=== PATIENT | female | born 1985 | race Caucasian/White ===

== ENCOUNTER 2016-10-01 16:06 | Inpatient (IN) | payer MEDICAID, SELFPAY ==
--- NOTE | 2016-10-01 17:01 | C.PDOC ---
History Of Present Illness <Mena Broussard - Last Filed: 10/01/16 18:56> <Vasu Diego - Last Filed: 10/01/16 20:30> 31 y/o female with lmp in mid Jun, presents with light vaginal bleeding today. pt sts it started shortly before coming to ED while taking a shower,.hasn 't used more than one pad. pt denies passage of clots. pt sts [facility] and had a sonogram done yesterday. pt sts she was told nothing was seen on sonogram yesterday. pt has f/u appt with sheeter operator for tues. denies abdominal pain. (Mena Broussard) History Per: Patient History/Exam Limitations: no limitations Onset/Duration Of Symptoms: Hrs (3) Current Symptoms Are (Timing): Still Present Severity: Mild Last Menstral Period: mid jun : 1 Para: 0 Miscarriage: 0 <Mena Broussard - Last Filed: 10/01/16 18:56> <Vasu Diego - Last Filed: 10/01/16 20:30> Time Seen by Provider: 10/01/16 16:32 Chief Complaint (Nursing): Female Genitourinary Past Medical History Reviewed: Historical Data, Nursing Documentation, Vital Signs - Medical History PMH: No Chronic Diseases Surgical History: No Surg Hx Family History: States: Unknown Family Hx - Social History Hx Tobacco Use: No Hx Alcohol Use: No Hx Substance Use: No - Immunization History Hx Tetanus Toxoid Vaccination: No Hx Influenza Vaccination: No Hx Pneumococcal Vaccination: No <Mena Broussard - Last Filed: 10/01/16 18:56> Review Of Systems Constitutional: Negative for: Fever, Chills Cardiovascular: Negative for: Chest Pain Respiratory: Negative for: Cough, Shortness of Breath Gastrointestinal: Negative for: Nausea, Vomiting, Abdominal Pain Genitourinary: Positive for: Vaginal Bleeding. Negative for: Dysuria, Frequency , Vaginal Discharge Neurological: Negative for: Weakness, Numbness <Mena Broussard - Last Filed: 10/01/16 18:56> Physical Exam - Physical Exam Appears: Non-toxic, No Acute Distress, Other (anxious appearing) Skin: Warm, Dry Head: Atraumatic, Normacephalic Neck: Normal ROM Chest: Symmetrical, No Deformity Cardiovascular: Rhythm Regular, No Murmur Respiratory: Normal Breath Sounds, No Rales, No Rhonchi, No Wheezing Gastrointestinal/Abdominal: Normal Exam, Bowel Sounds, Soft, Tenderness (mild suprapubic tenderness), No Guarding, No Rebound Pelvic: Normal External Exam, No Cervix Open, No Adnexal Tenderness, Other ( cervix closed, scant pinkish discharge on finger. no cmt) <Mena Broussard - Last Filed: 10/01/16 18:56> ED Course And Treatment - Laboratory Results Result Diagrams: 10/01/16 17:18 10/01/16 17:18 O2 Sat by Pulse Oximetry: 99 <Mena Broussard - Last Filed: 10/01/16 18:56> - Laboratory Results Result Diagrams: 10/01/16 17:18 10/01/16 17:18 Pulse Ox Interpretation: Normal <Vasu Diego - Last Filed: 10/01/16 20:30> Medical Decision Making <Mena Broussard - Last Filed: 10/01/16 18:56> <Vasu Diego - Last Filed: 10/01/16 20:30> Medical Decision Makin31 y/o female with vag bleeding and ab pain on exam- labs, t and s, ua and pelvuc sonogram; eval for threatened ab, missed, complete, ectopic. ( Mena Broussard) Disposition - Disposition Disposition Time: 18:56 <Mena Broussard - Last Filed: 10/01/16 18:56> Discussed With : Elvie Camejo Comment: accepted the pt on her service and took over the care at 8:26 PM Doctor Will See Patient In The: ED Counseled Patient/Family Regarding: Studies Performed, Diagnosis - POA Present On Arrival: None <Vasu Diego - Last Filed: 10/01/16 20:30> - Disposition Disposition: HOSPITALIZED Condition: FAIR - Clinical Impression Clinical Impression: Hydatidiform mole Physician Patient Turnover Patient Signed Over To: Vasu Diego Handoff Comments: f/u bhcg and transvaginal us and dispo accordingly; no rhogam needed, O positive blood type. <Mena Broussard Last Filed: 10/01/16 18:56> Decision To Admit <Mena Broussard - Last Filed: 10/01/16 18:56> - Pt Status Changed To: Hospital Disposition Of: Inpatient - Admit Certification Admit to Inpatient:: After my assessment, the patient will require hospitalization for at least two midnights. This is because of the severity of symptoms shown, intensity of services needed, and/or the medical risk in this patient being treated as an outpatient. - InPatient: Physician Admission Certification: I certify that this patient requires 2 or more midnights of care for the following reason:: After my assessment, the patient will require hospitalization for at least two midnights. This is because of the severity of symptoms shown, intensity of services needed, and/or the medical risk in this patient being treated as an outpatient. - . Bed Request Type: PLASTER TENDER Admitting Physician: Elvie Camejo <Vasu Diego - Last Filed: 10/01/16 20:30> - . Patient Diagnosis: Hydatidiform mole
[2016-10-01 17:23] LABS: BASO % 0.6 % (0.0-2.0); EOS # 0.1 K/uL (0.0-0.7); EOS % 0.6 % (0.0-4.0); LYMPH # 2.3 K/uL (1.0-4.3); LYMPH % 28.5 % (20.0-40.0); MEAN CELL VOLUME 86.6 fL (81.0-99.0); MEAN CORPUSCULAR HEMOGLOBIN 29.1 pg (27.0-31.0); MEAN CORPUSCULAR HGB CONC 33.6 g/dL (33.0-37.0); MEAN PLATELET VOLUME 7.4 fL (7.2-11.7); MONO # 0.5 K/uL (0.0-0.8); MONO % 6.8 % (0.0-10.0); RED CELL DISTRIBUTION WIDTH 13.2 % (11.5-14.5); WHITE BLOOD COUNT 8.1 K/uL (4.8-10.8)
[2016-10-01 17:26] LABS: RBC URINE 1 /hpf (0-3); URINE BILIRUBIN NEGATIVE (NEGATIVE); URINE BLOOD 1+ (NEGATIVE); URINE COLOR Yellow (YELLOW); URINE GLUCOSE (UA) NORMAL (Normal); URINE KETONE NEGATIVE (NEGATIVE); URINE LEUKOCYTE ESTERASE NEG Leu/uL (Negative); URINE PROTEIN NEGATIVE (NEGATIVE); URINE UROBILINOGEN NORMAL mg/dL (0.2-1.0); WBC URINE 1 /hpf (0-5)
[2016-10-01 17:33] LABS: CHLORIDE 100 mmol/L (98-107)
[2016-10-01 17:34] LABS: POTASSIUM 4.2 mmol/L (3.6-5.2); SODIUM 135 mmol/L (132-148)
[2016-10-01 17:37] LABS: ALB/GLOB RATIO 1.5 (1.0-2.1); ALKALINE PHOSPHATASE 48 U/L (38-126); ALT/SGPT 19 U/L (9-52); AST/SGOT 23 U/L (14-36); BILIRUBIN,TOTAL 0.4 mg/dL (0.2-1.3); BLOOD UREA NITROGEN 10 mg/dL (7-17); CALCIUM 9.3 mg/dl (8.6-10.4); CARBON DIOXIDE 24 mmol/L (22-30); GFR AFRICAN-AMERICAN > 60; GLUCOSE,RANDOM 84 mg/dL (65-105); TOTAL PROTEIN 7.4 g/dL (6.3-8.3)
--- NOTE | 2016-10-01 20:15 | US ---
EXAM: US , Transvaginal CLINICAL HISTORY: 31 years old, female; Signs and symptoms; Lmp or gestational age (in weeks): Unknown beta 008403.00; Other: Bleeding; ; Additional info: Preg with bleeding, lmp mid feb TECHNIQUE: Real-time transvaginal obstetrical ultrasound of the maternal pelvis and a first trimester with image documentation. Transvaginal imaging was used for better evaluation of the fetus and adnexa. COMPARISON: No relevant prior studies available. FINDINGS: Uterus/cervix: The uterus measures 14.4 x 8.1 x 10.1 cm. Within the uterus there is a complex solid and cystic mass distending the endometrial cavity. There is no pole. There is no yolk sac. There is no gestational sac. Ovaries: The left ovary measures 2.9 x 1.7 x 3.4 cm. Subcentimeter follicles are present. Contiguous with the left ovary is a hypervascular complex lesion measuring 2.2 cm in greatest diameter. This could represent a corpus luteum cyst. Blood flow is seen within the left ovary. The right ovary measures 3 x 1.5 x 2.6 cm. Subcentimeter follicles are present. Blood flow is present within the right ovary. Free fluid: No free fluid. IMPRESSION: 1. Complete hydatidiform molar within the uterus EXAM: US First Trimester, Transabdominal CLINICAL HISTORY: 31 years old, female; Signs and symptoms; Lmp or gestational age (in weeks): Unknown beta 187431.00; Other: Bleeding; ; Additional info: Preg with bleeding, lmp mid feb TECHNIQUE: Real-time transabdominal obstetrical ultrasound of the maternal pelvis and a first trimester with image documentation. EXAM DATE/TIME: Exam ordered 10/01/2016 4:53 PM COMPARISON: No relevant prior studies available. FINDINGS: Gestation: Placenta/amniotic fluid: Cannot be adequately evaluated due to the early gestational age. Uterus/cervix: The uterus measures 14.4 x 8.1 x 10.1 cm. The cervix measures 4.6 cm in length. A nabothian cyst is noted within the cervix. Within the uterus there is a complex solid and cystic mass distending the endometrial cavity. There is no pole. There is no yolk sac. There is no gestational sac. Ovaries: The left ovary measures 2.9 x 1.7 x 3.4 cm. Subcentimeter follicles are present. Contiguous with the left ovary is a hypervascular complex lesion measuring 2.2 cm in greatest diameter. This could represent a corpus luteum cyst. Blood flow is seen within the left ovary. The right ovary measures 3 x 1.5 x 2.6 cm. Subcentimeter follicles are present. Blood flow is present within the right ovary. Free fluid: A small amount of free fluid is seen in the posterior cul-de-sac. IMPRESSION: 1. Complete hydatidiform molar within the uterus. 2. Corpus luteum cyst in the left ovary
[2016-10-01] MEDS ORDERED: Oxytocin 30 UNIT 30 UNITS/500 ML BAG IV SCH (21:30)
[2016-10-01] MEDS ORDERED: cefOXitin IV 2 gm in Dextrose 2 GM/50 ML BAG IVPB ONE (21:31)
[2016-10-01] MEDS: Lactated Ringer's 1,000 ML IV SCH (21:51)
[2016-10-01] MEDS ORDERED: cefOXitin IV 1 gm in Dextrose 2 GM/100 ML BAG IVPB ONE (21:55)
--- NOTE | 2016-10-01 22:06 | CP.PCM.HP ---
History of Present Illness - History of Present Illness History of Present Illness: Patient received in Bed 5. on a stretcher, in the E.D. 31 yo unsure LMP, possibly end of June, with confirmed by EPT, desired and anticipated first OB intake visit scheduled for Mon , who presented c/o vaginal bleeding, onset 1500 hours ... "Light flow and a brighter red than my normal period". Denies any abdominal pain/cramps. No nausea or vomiting. In E.D. quantitative HCG 205,850 IU and pelvic ultrasound with no gestational sac, pole nor yolk sac; and a "complex solid and cystic mass distending the endometrial cavity"; uterus measures 14.1 x 8.1 x 10.1 cm - consistent with a "complete hydatidiform molar ". Left ovary 2.9 x 1. x 3.4 cm with probable corpus luteal cyst 2.2 cm. Right ovary 3 x 1.5 x 2.6 cm. No free fluid. Patient ate breakfast at 1130 hours and a bowl of ceral at 1430 hours; drank water at approximately 1930 hours for ultrasound. P Ob: Primip P MANAGER MOLECULAR: 15 x 30 x 5. 2012, abnormal Pap and probable cone biopsy ([facility]). Denies any other STIs PMH: denies HTN, DM, asthma, thyroid, or cardiac disorders PSH: Cone biopsy NKDA Meds: none Soc Hx: Currently, 10 cig per day x 1 1/2 months (since ); previously, 1ppd since age 13. 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 Denies EtOH use. 03/2016; together x 1 1/2 years. Lives with in the Fam Hx: Mother alive 61 no med issues. Father alive 68 - cardiac disorders. No known fam h/o cancer Present on Admission - Present on Admission Any Indicators Present on Admission: No Review of Systems - Review of Systems All systems: reviewed and no additional remarkable complaints except - Reproductive: Female Reproductive:Female: As Per HPI Past Patient History - Infectious Disease Hx of Infectious Diseases: None - Past Social History Smoking Status: Heavy Smoker > 10 Cigarettes Daily Alcohol: None Drugs: Denies - CARDIAC Hx Cardiac Disorders: No - PULMONARY Hx Respiratory Disorders: No - NEUROLOGICAL Hx Neurological Disorder: No - HEENT Hx HEENT Problems: No - RENAL Hx Chronic Kidney Disease: No - ENDOCRINE/METABOLIC Hx Endocrine Disorders: No - HEMATOLOGICAL/ONCOLOGICAL Hx Blood Disorders: No - INTEGUMENTARY Hx Dermatological Problems: No - MUSCULOSKELETAL/RHEUMATOLOGICAL Hx Musculoskeletal Disorders: No - GASTROINTESTINAL Hx Gastrointestinal Disorders: No - GENITOURINARY/GYNECOLOGICAL Hx Genitourinary Disorders: Yes Other/Comment: abnormal Pap; S/P probable cone biopsy LMP:: unsure : 1 Para: 0 - PSYCHIATRIC Hx Psychophysiologic Disorder: No Hx Substance Use: No - SURGICAL HISTORY Hx Surgeries: Yes Other/Comment: Probable cone biopsy - ANESTHESIA Hx Anesthesia: Yes Hx Anesthesia Reactions: No Meds Allergies/Adverse Reactions: Allergies Allergy/AdvReac Type Severity Reaction Status Date / Time No Known Allergies Allergy Verified 10/01/16 16:17 Physical Exam - Constitutional Appears: Well, Non-toxic, No Acute Distress - Head Exam Head Exam: NORMAL INSPECTION - Eye Exam Eye Exam: Normal appearance - ENT Exam ENT Exam: Mucous Membranes Moist - Neck Exam Neck exam: Positive for: Full Rom - Respiratory Exam Respiratory Exam: Clear to Auscultation Bilateral, NORMAL BREATHING PATTERN - Cardiovascular Exam Cardiovascular Exam: REGULAR RHYTHM - GI/Abdominal Exam GI & Abdominal Exam: Normal Bowel Sounds, Soft - Exam Bimanual exam: Uterine Enlargement (16 weeks, soft, mobile, non tender. Minimal vaginal bleeding.) - Extremities Exam Extremities exam: Positive for: full ROM, normal inspection - Back Exam Back exam: NORMAL INSPECTION - Neurological Exam Neurological exam: Alert, Oriented x3 - Psychiatric Exam Psychiatric exam: Normal Affect, Normal Mood - Skin Skin Exam: Dry, Intact, Normal Color, Warm Results - Vital Signs Recent Vital Signs: Last Vital Signs Temp 98.2 F 10/01/16 16:15 Pulse 82 10/01/16 16:15 Resp 18 10/01/16 16:15 BP 107/74 10/01/16 16:15 Pulse Ox 99 10/01/16 19:00 - Labs Result Diagrams: 10/01/16 17:18 10/01/16 17:18 Labs: Laboratory Results - last 24 hr 10/01/16 10/01/16 10/01/16 16:53 17:18 17:18 WBC 8.1 RBC 4.16 Hgb 12.1 Hct 36.0 MCV 86.6 MCH 29.1 MCHC 33.6 RDW 13.2 Plt Count 212 MPV 7.4 Neut % (Auto) 63.5 Lymph % (Auto) 28.5 [place] % (Auto) 6.8 Eos % (Auto) 0.6 Baso % (Auto) 0.6 Neut # 5.1 Lymph # 2.3 [place] # 0.5 Eos # 0.1 Baso # 0.0 Sodium Potassium Chloride Carbon Dioxide Anion Gap BUN Creatinine Est GFR ( Amer) Est GFR (Non-Af Amer) Random Glucose Calcium Total Bilirubin AST ALT Alkaline Phosphatase Total Protein Albumin Globulin Albumin/Globulin Ratio Beta HCG, Quant Urine Color Yellow Urine Clarity Hazy Urine pH 5.0 Ur Specific [place] 1.021 Urine Protein Negative Urine Glucose (UA) Normal Urine Ketones Negative Urine Blood 1+ H Urine Nitrate Negative Urine Bilirubin Negative Urine Urobilinogen Normal Ur Leukocyte Esterase Neg Urine WBC (Auto) 1 Urine RBC (Auto) 1 Ur Squamous Epith Cells 1 Blood Type O POSITIVE Antibody Screen Negative 10/01/16 17:18 WBC RBC Hgb Hct MCV MCH MCHC RDW Plt Count MPV Neut % (Auto) Lymph % (Auto) [place] % (Auto) Eos % (Auto) Baso % (Auto) Neut # Lymph # [place] # Eos # Baso # Sodium 135 Potassium 4.2 Chloride 100 Carbon Dioxide 24 Anion Gap 15 BUN 10 Creatinine 0.5 L Est GFR ( Amer) > 60 Est GFR (Non-Af Amer) > 60 Random Glucose 84 Calcium 9.3 Total Bilirubin 0.4 AST 23 ALT 19 Alkaline Phosphatase 48 Total Protein 7.4 Albumin 4.5 Globulin 2.9 Albumin/Globulin Ratio 1.5 Beta HCG, Quant 921293.00 Urine Color Urine Clarity Urine pH Ur Specific [place] Urine Protein Urine Glucose (UA) Urine Ketones Urine Blood Urine Nitrate Urine Bilirubin Urine Urobilinogen Ur Leukocyte Esterase Urine WBC (Auto) Urine RBC (Auto) Ur Squamous Epith Cells Blood Type Antibody Screen Assessment & Plan - Assessment and Plan (Free Text) Assessment: 31 yo P0, complete molar for uterine evacuation. Risks, complications , of D&C discussed with patient. She expressed an understanding and agrees; all her questions were answered. Consents were signed, dated, witnessed and placed in the chart. It was also discussed with the patient, the need for weekly follow up and serial HCG levels to document its decline to zero, as well as not getting for one full year after this result is achieved. Hence, contraception use has been emphasized. Patient is clinically stable. Plan: 1) Admit to image processing engineer 2) nail galvanizer to O.R. 3) NPO 4) IVF: LR at 125 mL/hr 5) Mefoxin, prior to O.R. 6) Pitocin: 30 units in 500 cc NS, emergency communications operator to O.R. 7) T&C x 2 units PRBCs - Date & Time Date: 10/01/16 Time: 22:14
[2016-10-01] MEDS ORDERED: Midazolam 2 MG/2 ML VIAL ONE (22:24)
[2016-10-01] MEDS ORDERED: Propofol 10 mg/ml Inj (20 ML) ONE ×2 (22:24→23:15)
[2016-10-01] MEDS ORDERED: Oxytocin 10 Units/ml Inj ONE (22:28)
[2016-10-01] MEDS ORDERED: Esmolol 100 mg/10ml Inj IV ONE (22:41)
[2016-10-01] MEDS ORDERED: HYDROmorphone 0.5 mg/0.5 ml ISec IVP PRN (23:41)
--- NOTE | 2016-10-01 23:54 | PCM.SURG1 ---
Surgeon's Initial Post Op Note - Surgeon's Notes Surgeon: Elvie Camejo MD Etl Analyst Developer: Not applicable Type of Anesthesia: General Endo Pre-Operative Diagnosis: Complete hydatidiform molar Operative Findings: EUA: uterus 16 weeks, moblie. Uterus sounded to 15.5 cm. Post-Operative Diagnosis: Same Operation Performed: Dilatation and curettage Specimen/Specimens Removed: Products of conception Estimated Blood Loss: EBL {In ML}: 100 (U.O. 100mL; IVFs 700mL, inclusive of 500mL bolus: LR with 30 units pitocin) Blood Products Given: N/A Drains Used: No Drains (vaginal packing with Monsel's solution. To be removed in the morning) Post-Op Condition: Good Date of Surgery/Procedure: 10/01/16 Time of Surgery/Procedure: 23:35
[2016-10-02] MEDS: Lactated Ringer's 1,000 ML IV SCH (05:47)
[2016-10-02 06:25] VITALS: TEMP 98.9
[2016-10-02 08:56] VITALS: BP 90/55; PULSE 73; RESP 18; O2SAT 97
--- NOTE | 2016-10-02 10:09 | OP ---
PROCEDURE DATE: 10/01/2016 SURGEON: Elvie Camejo MD YOUTH COUNSELOR: Nonapplicable. ANESTHESIA: General with endotracheal intubation. ANESTHESIOLOGIST: Abram Hopkins MD PREOPERATIVE DIAGNOSIS: Complete hydatidiform molar . POSTOPERATIVE DIAGNOSIS: Complete hydatidiform molar . OPERATIVE FINDINGS: Examination under anesthesia: anteverted uterus, 16 weeks in size, mobile and soft. Uterus sounded to 15.5 cm. OPERATION PERFORMED: Dilatation and curettage. SPECIMENS REMOVED: Products of conception. ESTIMATED BLOOD LOSS: 100 mL. URINE OUTPUT: Approximately 100 mL of clear urine. INTRAVENOUS FLUIDS: A total of 700 mL, inclusive of a 500 mL bolus of lactated ringers containing 30 units of Pitocin. BLOOD PRODUCTS GIVEN: None. DRAINS: None; vaginal packing placed - coated with Monsel's solution for hemostasis. POSTOPERATIVE CONDITION: Good. PROCEDURE: The patient was taken to the operating room after having obtained informed consent for the anticipated procedure, which included a discussion of possible complications including, but not limited to, hemorrhage requiring a blood transfusion, uterine perforation requiring further exploration via either laparoscopy or laparotomy, evaluation and repair of any damage to internal organs, possible hysterectomy. All consents were dated, signed, witnessed and placed in the chart. The patient had expressed a clear understanding and her questions were answered. In the operating room, she was placed on the operating room table in a supine position. General anesthesia with endotracheal intubation was administered without incident. She was subsequently positioned in a dorsal lithotomy and positioned in candy-cane stirrups. The vagina was prepped and she was draped in the usual sterile fashion. Examination under anesthesia was performed with the findings as above. At this time, straight catheterization was performed, urine output as above. A weighted speculum was placed in the posterior vaginal vault. Using the Lozano retractor to visualize the cervix, the anterior lip of the cervix was visualized and grasped with a single-toothed tenaculum. Serial dilatation of the cervix then ensued with the Do mechanical dilators to allow an 11 cm suction curette. The curette was introduced into the uterine cavity. The suction device was activated and the uterine cavity was emptied of its contents. Approximately 500 mL of a combination of blood and products of conceptions were obtained. Gentle sharp curettage was performed with two passes. Repeat suction curettage was performed. The uterus was noted to have contracted around the suction tip. Bimanual massage was performed and the uterus was approximately 12-14 weeks in size. All instruments were removed; while cleaning the patient, bright red blood per vagina was noted. Replacing the weighted speculum and the Lozano retractor, bright red blood was noted to be coming from the endocervical canal. Monsel's solution was applied using surgical cotton swabs and bimanual massage was performed intermittently. The decision was then made to coat vaginal packing with the balance of the Monsel's solution. An indwelling Arreola catheter was placed under sterile conditions. All instruments were removed; no active bleeding was noted. The patient tolerated the procedure well. She was extubated; allowed to arise from anesthesia and transferred to the recovery room in stable condition. Elvie Camejo MD cc: [id number] TT: 10/02/2016 10:08:25 en MTDD
[2016-10-02 11:32] LABS: LYMPH # 1.3 K/uL (1.0-4.3); MONO # 0.3 K/uL (0.0-0.8)
[2016-10-02 11:40] LABS: BASO % 0.4 % (0.0-2.0); EOS % 0.6 % (0.0-4.0); HEMATOCRIT 28.6 % (34.0-47.0); LYMPH % 20.2 % (20.0-40.0); MEAN CELL VOLUME 86.4 fL (81.0-99.0); MEAN CORPUSCULAR HEMOGLOBIN 29.4 pg (27.0-31.0); MEAN CORPUSCULAR HGB CONC 34.1 g/dL (33.0-37.0); MEAN PLATELET VOLUME 7.6 fL (7.2-11.7); MONO % 5.4 % (0.0-10.0); RED CELL DISTRIBUTION WIDTH 12.8 % (11.5-14.5); WHITE BLOOD COUNT 6.4 K/uL (4.8-10.8)
--- NOTE | 2016-10-02 11:40 | CP.PCM.DIS ---
Provider - Provider Date of Admission: 10/01/16 20:27 Attending physician: Elvie Camejo MD Time Spent in preparation of Discharge (in minutes): 45 Diagnosis - Discharge Diagnosis (1) Complete hydatidiform mole Status: Resolved Priority: High Onset Date: ~10/01/16 Comment: Status post dilatation and curettage. Hospital Course - Lab Results Lab Results: Most Recent Lab Values WBC 8.1 K/uL (4.8-10.8) 10/01/16 17:18 RBC 4.16 Mil/uL (3.80-5.20) 10/01/16 17:18 Hgb 12.1 g/dL (11.0-16.0) 10/01/16 17:18 Hct 36.0 % (34.0-47.0) 10/01/16 17:18 MCV 86.6 fL (81.0-99.0) 10/01/16 17:18 MCH 29.1 pg (27.0-31.0) 10/01/16 17:18 MCHC 33.6 g/dL (33.0-37.0) 10/01/16 17:18 RDW 13.2 % (11.5-14.5) 10/01/16 17:18 Plt Count 212 K/uL (130-400) 10/01/16 17:18 MPV 7.4 fL (7.2-11.7) 10/01/16 17:18 Neut % (Auto) 63.5 % (50.0-75.0) 10/01/16 17:18 Lymph % (Auto) 28.5 % (20.0-40.0) 10/01/16 17:18 [place] % (Auto) 6.8 % (0.0-10.0) 10/01/16 17:18 Eos % (Auto) 0.6 % (0.0-4.0) 10/01/16 17:18 Baso % (Auto) 0.6 % (0.0-2.0) 10/01/16 17:18 Neut # 5.1 K/uL (1.8-7.0) 10/01/16 17:18 Lymph # 2.3 K/uL (1.0-4.3) 10/01/16 17:18 [place] # 0.5 K/uL (0.0-0.8) 10/01/16 17:18 Eos # 0.1 K/uL (0.0-0.7) 10/01/16 17:18 Baso # 0.0 K/uL (0.0-0.2) 10/01/16 17:18 Sodium 135 mmol/L (132-148) 10/01/16 17:18 Potassium 4.2 mmol/L (3.6-5.2) 10/01/16 17:18 Chloride 100 mmol/L (98-107) 10/01/16 17:18 Carbon Dioxide 24 mmol/L (22-30) 10/01/16 17:18 Anion Gap 15 (10-20) 10/01/16 17:18 BUN 10 mg/dL (7-17) 10/01/16 17:18 Creatinine 0.5 MG/DL (0.7-1.2) L 10/01/16 17:18 Est GFR ( Amer) > 60 10/01/16 17:18 Est GFR (Non-Af Amer) > 60 10/01/16 17:18 Random Glucose 84 mg/dL (65-105) 10/01/16 17:18 Calcium 9.3 mg/dl (8.6-10.4) 10/01/16 17:18 Total Bilirubin 0.4 mg/dL (0.2-1.3) 10/01/16 17:18 AST 23 U/L (14-36) 10/01/16 17:18 ALT 19 U/L (9-52) 10/01/16 17:18 Alkaline Phosphatase 48 U/L (38-126) 10/01/16 17:18 Total Protein 7.4 g/dL (6.3-8.3) 10/01/16 17:18 Albumin 4.5 g/dL (3.5-5.0) 10/01/16 17:18 Globulin 2.9 gm/dL (2.2-3.9) 10/01/16 17:18 Albumin/Globulin Ratio 1.5 (1.0-2.1) 10/01/16 17:18 Beta HCG, Quant 145497.00 mIU/ML 10/01/16 17:18 Urine Color Yellow (YELLOW) 10/01/16 17:18 Urine Clarity Hazy (Clear) 10/01/16 17:18 Urine pH 5.0 (5.0-8.0) 10/01/16 17:18 Ur Specific [place] 1.021 (1.003-1.030) 10/01/16 17:18 Urine Protein Negative mg/dL (NEGATIVE) 10/01/16 17:18 Urine Glucose (UA) Normal mg/dL (Normal) 10/01/16 17:18 Urine Ketones Negative mg/dL (NEGATIVE) 10/01/16 17:18 Urine Blood 1+ (NEGATIVE) H 10/01/16 17:18 Urine Nitrate Negative (NEGATIVE) 10/01/16 17:18 Urine Bilirubin Negative (NEGATIVE) 10/01/16 17:18 Urine Urobilinogen Normal mg/dL (0.2-1.0) 10/01/16 17:18 Ur Leukocyte Esterase Neg Erik/uL (Negative) 10/01/16 17:18 Urine WBC (Auto) 1 /hpf (0-5) 10/01/16 17:18 Urine RBC (Auto) 1 /hpf (0-3) 10/01/16 17:18 Ur Squamous Epith Cells 1 /hpf (0-5) 10/01/16 17:18 Blood Type O POSITIVE 10/01/16 16:53 Antibody Screen Negative 10/01/16 16:53 - Hospital Course Hospital Course: 31 yo P0, approximately 12 weeks by unsure LMP (end of June), who presentd for evaluatoin of vaginal bleeding onset 1500 hours DOA; no abdominal pain. Incidental finding of complete hydatidiform mole by ultrasound, in conjunction with elevated quant HCG 205,850 IU. Patient underwent uncomplicated D&C for uterine evacuation. Vaginal packing had been placed for hemostasis. POD#1 vaginal packing removed. Patient ambulated, and urinated with no heavy vaginal bleeding - only very minimal spotting. She tolerated a regular diet. Post operative labs noted for post operative anemia (H/H 9.7/28.6); and a decrease in HCG to 66,280 IU. TSH 0.44 (not enough specimen to run Free T4 analysis). Patient, and , were counseled extensively on importance of: 1 ) serial HCG level determinations until zero; 2) not conceiving for at least one year after this level is achieved; 3) supplementation and dietary measures to increase her hemoglobin status. Patient also instructed to follow up with Dr. Manjinder Mason, [facility], 10/05/16. Patient and expressed an undersanidng and agree; all of their questions were answered - Date & Time of H&P Date of H&P: 10/01/16 Time of H&P: 21:55 Discharge Exam - Head Exam Head Exam: NORMAL INSPECTION - Eye Exam Eye Exam: Normal appearance - ENT Exam ENT Exam: Mucous Membranes Moist - Neck Exam Neck exam: Full Rom - Respiratory Exam Respiratory Exam: NORMAL BREATHING PATTERN, UNREMARKABLE - GI/Abdominal Exam GI & Abdominal Exam: Normal Bowel Sounds, Unremarkable - Exam External exam: NORMAL EXTERNAL EXAM (No active bleeding nor blood per perineum) - Extremities Exam Extremities exam: full ROM, normal inspection - Neurological Exam Neurological exam: Alert, Normal Gait, Oriented x3 - Skin Skin Exam: Dry, Intact, Pallor, Warm Discharge Plan - Follow Up Plan Condition: FAIR Disposition: HOME/ ROUTINE Instructions: Complete Hydatidiform Mole (DC), Dilation and Curettage (DC) Additional Instructions: - Please be sure to call the [facility] upon discharge to schedule a follow-up appointment for this Monday (10/05/16) - Avoid lifting heavy weights - Avoid inserting anything into the vagina (no sex, tampons, or douching) - Drink plenty of fluids to avoid constipation (about 8-10 glasses of water) and consume a high fiber diet - Please return to the ER: If you should bleed and saturate a pad with 1-2 hours with bright red blood, or have a temperature of 100.4 or higher, or if you develop intractable pain. Referrals: Manjinder Mason [Staff Provider] -
[2016-10-02 12:03] LABS: CHLORIDE 103 mmol/L (98-107)
[2016-10-02 12:04] LABS: POTASSIUM 3.6 mmol/L (3.6-5.2); SODIUM 134 mmol/L (132-148)
[2016-10-02 12:06] LABS: BILIRUBIN,TOTAL 0.5 mg/dL (0.2-1.3); CARBON DIOXIDE 22 mmol/L (22-30); GFR AFRICAN-AMERICAN > 60
[2016-10-02 12:07] LABS: ALB/GLOB RATIO 1.4 (1.0-2.1); ALKALINE PHOSPHATASE 40 U/L (38-126); ALT/SGPT 23 U/L (9-52); AST/SGOT 26 U/L (14-36); BLOOD UREA NITROGEN 6 mg/dL (7-17); CALCIUM 8.1 mg/dl (8.6-10.4); GLUCOSE,RANDOM 153 mg/dL (65-105); TOTAL PROTEIN 5.8 g/dL (6.3-8.3)
[2016-10-02 12:35] LABS: THYROID STIMULATING HORMONE 0.44 mIU/L (0.46-4.68)
== END 2016-10-02 13:00 | disposition home or self-care (01) | DRG 886 ==
LOC: C.ER 16:06 → C.9S 20:27 → C.ER 22:20 → C.4M 22:57
PROVIDERS: ADMIT Obstetrics & Gynecology; ATTEND Obstetrics & Gynecology
PROC: 10D07Z8 Extraction of Products of Conception, Other, Via Natural or Artificial Opening (ICD-10-PCS; principal; 2016-10-01 22:00)
DX: O01.0 Classical hydatidiform mole (principal); N83.12 Corpus luteum cyst of left ovary

== ENCOUNTER → 2017-02-21 | Day surgery (SDC) | payer SELFPAY ==
[2017-02-20 09:17] VITALS: BMI 24.3
[~2017-02-21] MED LIST: Midazolam 2 MG/2 ML VIAL ONE
--- NOTE | 2017-02-21 11:50 | CP.SDSHP ---
Same Day Surgery H & P - History Proposed Procedure: CT guided biopsy of left lung nodule Pre-Op Diagnosis: Lung nodule - Allergies Allergies: Allergies No Known Allergies Allergy (Verified 02/20/17 09:19) - Physical Exam Mental Status: Alert & Oriented x3 Neuro: WNL Heart: WNL Lungs: WNL - Impression Impression: Pt with a 1.5 cm left lower lobe nodule. Plan CT guided core biopsy. Pt. Evaluated Today:Candidate for Anesthesia & Procedure: Yes (ASA 2 Malampati 2) - Date & Time Date: 02/21/17 Time: 11:35 Short Stay Discharge - Short Stay Discharge Admitting Diagnosis/Reason for Visit: MOLAR
--- NOTE | 2017-02-21 11:51 | PCM.SURG1 ---
Surgeon's Initial Post Op Note - Surgeon's Notes Surgeon: Edward Mckinley MD Science Interpreter: NONE Type of Anesthesia: IV Sedation Pre-Operative Diagnosis: Left lung nodule Operative Findings: 1.5 cm round left lung nodule Post-Operative Diagnosis: Left lung nodule Operation Performed: CT guided core biopsy Specimen/Specimens Removed: 20 gauge core x 1 Estimated Blood Loss: EBL {In ML}: 0 Blood Products Given: N/A Drains Used: No Drains Post-Op Condition: Good Date of Surgery/Procedure: 02/21/17 Time of Surgery/Procedure: 11:45
--- NOTE | 2017-02-21 14:00 | RAD ---
PROCEDURE: CHEST RADIOGRAPH, 1 VIEW HISTORY: Status post left lung nodule biopsy. COMPARISON: None available. FINDINGS: LUNGS: Clear. PLEURA: No pneumothorax or pleural fluid seen. CARDIOVASCULAR: Normal. OSSEOUS STRUCTURES: No significant abnormalities. VISUALIZED UPPER ABDOMEN: Normal. OTHER FINDINGS: None. IMPRESSION: There is no pneumothorax following biopsy of left lung nodule.
--- NOTE | 2017-02-21 14:03 | CT ---
PROCEDURE: Date of procedure: 02/21/2017 Procedure: 1. CT-guided lung nodule biopsy, CPT [address] Guidance for biopsy, 13490 Medications: The patient was sedated by anesthesiologist along with physiologic monitoring. 8 cc Lidocaine 1% HISTORY: Left lower lobe lung nodule TECHNIQUE: Following informed consent and procedure time out, the patient was placed prone on the CT table and noncontrast CT scan was performed. Noncontrast CT scan confirmed the presence of a 1.3 cm left lower lobe lung nodule. A skin localizer was placed on the patient's LEFT back and a repeat CT scan was performed. The skin was marked, prepped, and draped in the usual sterile fashion. After the skin was anesthetized with lidocaine and the patient sedated by the anesthesiologist, a 20 gauge core needle was advanced percutaneously under direct CT guidance into the mass. Upon confirmation of needle position, a 20-gauge core specimen were obtained and sent for routine pathology. The needle was removed and a xeroform dressing was applied. A post biopsy CT scan showed no pneumothorax. IMPRESSION: CT guided core biopsy left lung nodule.
== END | disposition home or self-care (01) ==
LOC: C.SPRAD 09:45
PROVIDERS: ATTEND Radiology Vascular & Interventional Radiology
DX: R91.1 Solitary pulmonary nodule (principal)
CPT/HCPCS: 32405; 71010; 88305; J2250; J3010